=== PATIENT | female | born 2000 | race Caucasian/White ===

== ENCOUNTER 2021-02-12 09:30 | Emergency (ER) | payer OTHER ==
[~2021-02-12] VITALS: Ht 170.2 cm; Wt 72.6 kg
[2021-02-12 09:35] VITALS: BP 136/74
--- NOTE | 2021-02-12 09:40 | NUR ---
Patient ambulated to bed 7. RN evaluating the patient at bedside.
--- NOTE | 2021-02-12 09:45 | NUR ---
Dr. Gibbons is evaluating the patient at bedside.
[2021-02-12] MEDS ORDERED: ONDANSETRON 4 MG/2 ML VIAL IVP ONE (09:50)
[2021-02-12] MEDS ORDERED: NACL 0.9% 1,000 ML IV SCH (09:50)
[2021-02-12] MEDS ORDERED: ALUMINUM HYD/MAG/SIMETHICONE 30 ML, DICYCLOMINE HCL LIQUID 20 MG, LIDOCAINE VISCOUS 2% ... PO ONE ×3 (09:50)
[2021-02-12] MEDS ORDERED: ALUMINUM HYD/MAG/SIMETHICONE 30 ML UDC ONE (09:52)
[2021-02-12] MEDS ORDERED: LIDOCAINE VISCOUS 2% 20 ML UDC ONE (09:52)
[2021-02-12] MEDS ORDERED: DICYCLOMINE HCL LIQUID 10 MG/5 ML UDC ONE (09:53)
[2021-02-12 10:03] LABS: BASOPHILS % (AUTO) 0.4 % (0.0-2.0); EOSINOPHILS % (AUTO) 0.2 % (0.0-4.0); HEMATOCRIT 41.6 % (36-48); HEMOGLOBIN 13.7 g/dL (12.0-16.0); LYMPHOCYTES # (AUTO) 1.6 K/uL (2.5-16.5); MEAN CORPUSCULAR HEMOGLOBIN 28 pg (27-31); MEAN CORPUSCULAR HGB CONC 33 g/dL (33-37); MEAN CORPUSCULAR VOLUME 84.6 fL (80-94); MONOCYTES # (AUTO) 0.4 K/uL (0.8-1.0); MONOCYTES % (AUTO) 5.7 % (1.7-9.3); NEUTROPHILS # (AUTO) 5.1 K/uL (1.8-7.7); NEUTROPHILS % (AUTO) 71.7 % (42.2-75.2); PLATELET COUNT (AUTO) 252 K/uL (140-450); RED BLOOD CELL COUNT(AUTO) 4.92 MIL/uL (4.20-5.40); RED CELL DISTRIBUTION WIDTH 13.8 % (11.6-13.7); WHITE BLOOD COUNT (AUTO) 7.1 K/uL (4.5-11.0)
[2021-02-12 10:17] LABS: ALBUMIN 4.3 g/dL (3.4-5.0); ANION GAP 11.6 (8-16); CARBON DIOXIDE 28.6 mmol/L (21-32); CREATININE 0.7 mg/dL (0.6-1.3); POTASSIUM 4.2 mmol/L (3.5-5.1)
--- NOTE | 2021-02-12 10:20 | NUR ---
20 Y/O F BIB SELF FROM HOME, PATIENT PRESENTS TO ED WITH N&V WITH ABD PAIN FOR 1 MONTH. PT STATES SHE HAS BEEN WAKING UP IN THE MORNING FOR THE PAST 1 MO AND HAVNIG EMESIS EPISODES FOR 1 MONTH. DENIES CONSTIPATION, DIARRHEA, PAINFUL URINATION; SKIN IS PINK/WARM/DRY; AAOX4 WITH EVEN AND STEADY GAIT; LUNGS CLEAR BL; HR EVEN AND REGULAR; PT DENIES ANY FEVER, CP, SOB, OR COUGH AT THIS TIME; PATIENT STATES PAIN OF 3/10 AT THIS TIME; VSS; PATIENT POSITIONED FOR COMFORT; HOB ELEVATED; BEDRAILS UP X2; BED DOWN. ER MD MADE AWARE OF PT STATUS. PMH: DENIES NKA MED: NONE
--- NOTE | 2021-02-12 10:36 | NUR ---
PATIENT AMBULATED TO RESTROOM FOR COLLECTION OF URINE
[2021-02-12] MEDS ORDERED: ONDA-24 PO (10:41)
[2021-02-12] MEDS ORDERED: FAMO-92 PO (10:41)
--- NOTE | 2021-02-12 11:29 | NUR ---
Patient discharged with v/s stable. Written and verbal after care instructions given and explained. Patient alert, oriented and verbalized understanding of instructions. Ambulatory with steady gait. All questions addressed prior to discharge. ID band removed. Patient advised to follow up with PMD. Rx of ONDANSETRON, FAMOTIDINE given. Patient educated on indication of medication including possible reaction and side effects. Opportunity to ask questions provided and answered.
[2021-02-12 11:30] VITALS: BP 136/74
== END 2021-02-12 11:29 | disposition home or self-care (01) ==
LOC: MED 09:30
DX: K29.70 Gastritis, unspecified, without bleeding (principal); R11.2 Nausea with vomiting, unspecified; Z79.899 Other long term (current) drug therapy
CPT/HCPCS: 36415; 80053; 81002; 81025; 83690; 85025; 96361; 96374; 99283; J2405; J7030

== ENCOUNTER 2022-09-29 13:35 | Emergency (ER) | payer OTHER ==
[~2022-09-29] VITALS: Ht 170.2 cm; Wt 69.9 kg
[~2022-09-29 13:35] MED LIST: FAMO-92 PO; ONDA-188 PO
[2022-09-29 13:41] VITALS: BP 129/69
--- NOTE | 2022-09-29 13:54 | NUR ---
21F PRESENTS TO ED WITH C/O MID AND LOW BACK PAIN X4 DAYS. PT REPORTS A CONSTANT, ACHING LIKE, 9/10 PAIN RADIATING FROM MID BACK TO LOWER BACK. PT DENIES TRAUMA/INJURY, DENIES URINARY BURNING/PAIN OR FREQUENCY. PT REPORTS PAIN WORSENING YESTERDAY WHILE DRIVING.
[2022-09-29] MEDS ORDERED: KETOROLAC 30 MG/ML VIAL IM ONE (14:05)
[2022-09-29] MEDS ORDERED: CYCLOBENZAPRINE 10 MG TAB PO ONE (14:05)
--- NOTE | 2022-09-29 14:37 | NUR ---
PT BROUGHT BACK VIA WHEELCHAIR
[2022-09-29 16:05] VITALS: BP 126/69
--- NOTE | 2022-09-29 17:06 | NUR ---
Patient discharged with v/s stable. Written and verbal after care instructions FOR LOW BACK SPRAIN given and explained. Patient verbalized understanding. Ambulatory with steady gait. All questions addressed prior to discharge. Advised to follow up with PMD. COPY OF XRAY PROVIDED
--- NOTE | 2022-09-29 17:06 | NUR ---
The patient's care was reviewed and supervised by Didi Kumari RN.
== END 2022-09-29 17:06 | disposition home or self-care (01) ==
LOC: MED 13:35
DX: M54.50 Low back pain, unspecified (principal); M62.838 Other muscle spasm; Z79.899 Other long term (current) drug therapy
CPT/HCPCS: 72100; 81025; 96372; 99283; J1885